=== PATIENT | female | born 1995 | race Caucasian/White ===

== ENCOUNTER 2020-12-25 16:29 | Emergency (ER) | payer OTHER, SELFPAY ==
[2020-12-25 16:31] VITALS: BP 121/68; PULSE 70; RESP 16; TEMP 36.6; O2SAT 99; BMI 25.0
--- NOTE | 2020-12-25 16:53 | ED_ITS ---
ED Disposition Clinical Impression: Closed head injury Qualifiers: Encounter type: initial encounter Qualified Code(s): S09.90XA - Unspecified injury of head, initial encounter Disposition: Home, Self-Care Condition on Discharge: Good Instructions: DI for Closed Head Injury Referrals: PCPShefali [Primary Care Provider] - 3 days - Critical Care Critical Care Time: No Attestation: On , the high probability of a clinically significant, sudden or life threatening deterioration of the following system(s) required my full and direct attention, intervention and personal management. The time I documented below is in addition to time spent performing reported procedures but includes the following listed in this critical care notation. Medical Decision Making - [place] Inquiry Pt receiving controlled substance: No Medical Decision Narrative: Patient with GCS of 15, no signs of neurosurgically significant intracranial injury at this time with no confusion, syncope, vomiting, focal neurologic symptoms. Patient and I discussed CT scan of the head, but she does not want this I do not feel she needs a CT scan of the head at this time either. Cervical spine cleared via [facility] criteria. Pt really just is requesting a work note so that she can take some time off to recover from what is possibly a mild concussion. Very low concern given mechanism of injury for significant intracranial bleed. Discharged home. Follow-up with PCP in 2 to 3 days for reevaluation. General Adult HPI - General Stated complaint: WO [id number] @1915 hit head on table Time Seen by Provider: 12/25/20 16:45 Mode of Arrival: Ambulatory Source of Information: Patient Limitations: No Limitations - History of Present Illness HPI narrative: This is a 25-year-old female with no significant past medical history who presents to the emergency department for evaluation of head injury that occurred yesterday evening. She states that she hit her head on a table when she was cleaning. No loss of consciousness, vomiting though she has had several episode s of nausea. She noticed that looking at a computer screen today hurt her eyes, so she was concerned about possible concussion. She does not take blood thinners. No confusion today. No lateralizing motor or sensory symptoms. [facility] History - Hepatitis A Screen Attestation statement:: This patient has been screened for Hepatitis A risk factors. I have reviewed the patient's past medical history: Yes (No significant contributory past medical history) ROS Obtained: Yes All systems reviewed & no additional complaints Physical Exam - General General appearance: alert, in no apparent distress - Head Head exam: atraumatic, normocephalic, normal inspection - Eye Eye exam: Present: normal appearance, PERRL, EOMI - ENT ENT exam: Present: normal exam, mucous membranes moist - Neck Neck exam: Present: normal inspection, full ROM, trachea midline. Absent: te nderness - Respiratory Respiratory exam: Present: normal lung sounds bilaterally. Absent: respiratory distress - Cardiovascular Cardiovascular exam: Present: regular rate, normal rhythm - Neurological Exam Neurological exam: Present: alert, oriented X3, normal gait. Absent: motor sensory deficit - Skin Skin exam: Present: warm, dry
[2020-12-25 17:02] VITALS: BP 121/68; PULSE 70; RESP 16; TEMP 36.6; O2SAT 98
== END 2020-12-25 17:04 | disposition home or self-care (01) ==
LOC: ER 17:03
PROVIDERS: Emergency Provider Emergency Medicine
DX: S09.90XA Unspecified injury of head, initial encounter (principal); W22.03XA Walked into furniture, initial encounter; Y92.69 Other specified industrial and construction area as the place of occurrence of the external cause; Y99.0 Civilian activity done for income or pay
CPT/HCPCS: 99281

== ENCOUNTER → 2022-01-26 12:00 | Outpatient (CLI) | payer OTHER, SELFPAY ==
[2022-01-26 13:52] LABS: Thyroid Stimulating Hormone 2.67 uIU/mL (0.465-4.68)
[2022-01-27 09:42] LABS: Estradiol 49.1 pg/mL (.); LH 4.8 mIU/mL (.); Progesterone 0.2 ng/mL (.); Prolactin 10.8 ng/mL (4.8-23.3)
== END ==
PROVIDERS: Visit Provider Obstetrics & Gynecology
DX: N92.6 Irregular menstruation, unspecified (principal)
CPT/HCPCS: 36415; 82670; 83001; 83002; 84144; 84146; 84443

== ENCOUNTER → 2022-01-28 14:10 | Outpatient (CLI) | payer OTHER, SELFPAY ==
--- NOTE | 2022-01-28 14:10 | US_ITS ---
FINAL REPORT CLINICAL HISTORY: irregular menses FINDINGS: Transvaginal sonographic images of the pelvis were obtained. The uterus measures 4.4 x 3.1 x 2.5 cm. The endometrium measures 4 mm, which is within normal limits. No uterine mass is identified. The right ovary measures 3.2 x 2.7 x 2.1 cm in length and left ovary measures 3.9 x 3.2 x 2.6 cm in length. Normal blood flow seen to the ovaries. There is a 3 cm probable cyst in the left ovary. There are several small follicles in the right ovary. There is no evidence of free fluid. IMPRESSION: 3 cm probable left ovarian cyst. Reviewed, Interpreted and Dictated by Juan Romo III, MD Transcribed by Sam Collins Authenticated by Juan Romo III, MD on 02/03/2022 12:33:27 PM [facility]
== END ==
PROVIDERS: Visit Provider Obstetrics & Gynecology
DX: N92.6 Irregular menstruation, unspecified (principal)
CPT/HCPCS: 76830